=== PATIENT | male | born 2000 | race American Indian/Alaskan Native ===

== ENCOUNTER 2024-01-08 17:38 | Emergency (ER) | payer OTHER ==
[~2024-01-08] VITALS: Ht 172.7 cm; Wt 107.9 kg
[2024-01-08 18:33] LABS: BASOPHILS 0.7 % (0-2); EOSINOPHILS 0.9 % (0-6); HEMATOCRIT 42.2 % (35.0-50.0); HEMOGLOBIN 14.6 g/dL (12.0-18.0); LYMPHOCYTES 10.4 % (24-44); MCH 33.1 (27-36); MCHC 34.7 g/dl (30-36); MCV 95.5 fl (81-99); MONOCYTES 9.8 % (0-12); NEUTROPHILS 78.2 % (39-80); PLATELET COUNT 204 K/uL (140-440); RBC 4.42 M/ul (4.3-5.7); RDW 12.9 (10.5-15.0)
[2024-01-08] MEDS ORDERED: MULTIVITAMINS 10 ML,FOLIC ACID 1 MG,THIAMINE HCL 100 MG in SODIUM CHLORIDE 0.9% 1,000 ML IV ONE (18:45)
[2024-01-08] MEDS ORDERED: LORazepam 2 MG/ML VIAL IV ONE (18:45)
[2024-01-08 18:48] LABS: ALBUMIN 4.3 g/dL (3.4-5.0); ALBUMIN/GLOBULIN RATIO 1.08 (1.1-2.4); ANION GAP 19.7 (7-21); BILIRUBIN, TOTAL 1.1 ng/dL (0.2-1.0); BUN/CREATININE RATIO 18.68 (6.0-28.6); CALCIUM 9.1 mg/dL (8.5-10.1); CREATININE, SERUM 0.91 mg/dL (0.70-1.30); MAGNESIUM 1.6 mg/dL (1.8-2.4); POTASSIUM 3.7 mmol/L (3.5-5.1); PROTEIN, TOTAL 8.3 g/dL (6.4-8.2)
[2024-01-08] MEDS ORDERED: FOLIC ACID 1 MG/0.2 ML ML ONE (18:49)
[2024-01-08 19:57] LABS: INFLUENZA B NAA NEGATIVE (NEGATIVE); RESPIRATORY SYNCYTIAL VIR NAA NEGATIVE (NEGATIVE)
[2024-01-08] MEDS ORDERED: droPERidol 5 MG/2 ML VIAL IV ONE (21:00)
[2024-01-08] MEDS ORDERED: ONDANSETRON 4 MG HOME.PACK SL ONE (22:00)
[2024-01-08] MEDS ORDERED: ONDANSETRON ODT8 MG PO (22:06)
[2024-01-08 22:27] VITALS: BP 155/77
[2024-01-08 22:44] LABS: AMPHETAMINES, URINE NEGATIVE (NEGATIVE); BARBITURATES, URINE NEGATIVE (NEGATIVE); BENZODIAZEPINE, URINE NEGATIVE (NEGATIVE); BUPRENORPHINE, URINE NEGATIVE (NEGATIVE); CANNABINOID, URINE NEGATIVE (NEGATIVE); COCAINE, URINE NEGATIVE (NEGATIVE); ECSTASY, URINE NEGATIVE (NEGATIVE); FENTANYL, URINE NEGATIVE (NEGATIVE); METHADONE, URINE NEGATIVE (NEGATIVE); OPIATES, URINE NEGATIVE (NEGATIVE); OXYCODONE, URINE NEGATIVE (NEGATIVE); PHENCYCLIDINE, URINE NEGATIVE (NEGATIVE)
== END 2024-01-08 22:28 | disposition home or self-care (01) ==
LOC: ED 17:38
PROVIDERS: Emergency Medicine
DX: J06.9 Acute upper respiratory infection, unspecified (principal); Z11.52 Encounter for screening for COVID-19
CPT/HCPCS: 36415; 80053; 80307; 83690; 83735; 85025; 87502; 87651; 96365; 96366; 96375; 99284-25; A9270; G0480; J1790; J2060; J3411; J7030; U0002

== ENCOUNTER 2025-02-26 19:18 | Emergency (ER) | payer OTHER | END 2025-02-26 19:54 | disposition home or self-care (01) | LOC: ED 19:18 | DX: F15.10 Other stimulant abuse, uncomplicated (principal); Z02.89 Encounter for other administrative examinations; F10.10 Alcohol abuse, uncomplicated ==